=== PATIENT | male | born 1950 | race Caucasian/White ===

== ENCOUNTER → 2016-05-24 | Outpatient (CLI) | payer MEDICARE, BC | END | disposition home or self-care (01) | LOC: PCVCIMAG 14:36 | PROVIDERS: ATTEND Internal Medicine Cardiovascular Disease | DX: I25.10 Atherosclerotic heart disease of native coronary artery without angina pectoris (principal); I10 Essential (primary) hypertension; E78.00 Pure hypercholesterolemia, unspecified; Z95.5 Presence of coronary angioplasty implant and graft | CPT/HCPCS: 93325; 93351 ==

== ENCOUNTER → 2018-05-08 | Outpatient (CLI) | payer MEDICARE, BC ==
--- NOTE | 2018-05-08 16:44 | PCVCIMAG ---
APPROVED REPORT Study performed: 05/08/2018 14:14:24 Exam: Stress Echocardiogram Indication: CAD , Hypertension Patient Location: Echo lab Stress Nurse: Madeline Trujillo RN Status: routine Ht: 6 ft 0 in HR: 103 bpm BP: 160/98 mmHg Rhythm: NSR Medical History Medical History: CAD s/p stents, HTN Procedure The patient underwent an Exercise Stress Test using the Eber Protocol. Blood pressure, heart rate, and EKG were monitored. An Echocardiogram was performed by industrial maintenance technician in four stages in quad fashion. At peak stress, four selected images were obtained and placed side by side with resting images for comparison. Stress Test Details Stress Test: Exercise stress testing was performed using a Eber protocol. HR Resting HR: 103 bpmMax Heart Rate (APMHR): 153 bpm Max HR Achieved: 162 bpmTarget HR (85% APMHR): 130 bpm % of APMHR: 105 Recovery HR: 114 bpm HR response to stress: Normal HR response to stress BP Resting BP: 160/98 mmHg Max BP: 228/100 mmHg Recovery BP: 164/84 mmHg BP response to stress: Normal blood pressure response to stress. ECG Resting ECG: Sinus Rhythm Stress ECG: Sinus Rhythm Arrhythmia: VPC's Recovery ECG: Sinus Rhythm Recovery Arrhythmia: VPC"s Clinical Reason for Termination: Maximal effort Exercise duration: 7 min 45 sec Highest Stage Achieved: Stage 3: 3.4 mph at 14% grade. Exercise capacity: 10.10 METs Overall Exercise Capacity for Age: Average Pre-Stress Echo The resting Echocardiogram showed normal left ventricular contractility with an estimated Ejection Fraction of about 55-60%. Normal wall motion in all segments on baseline images. Normal wall motion in all segments on baseline images. Post-Stress Echo The stress Echocardiogram showed normal left ventricular contractility with an estimated Ejection Fraction of about 60-65%. Normal augmentation of wall motion in all segments on post stress images. Clinical No clinical or ECG evidence for ischemia. Conclusion Clinical Response: Non-ischemic Exercise Capacity: Average Stress ECG Response: Non-ischemic Stress Echo Images: Non-ischemic The left ventricle is normal in size and wall thickness in both the rest and stress images. Other Information Study Quality: Adequate <Conclusion> The left ventricle is normal in size and wall thickness in both the rest and stress images.
== END | disposition home or self-care (01) ==
LOC: PCVCIMAG 13:12
PROVIDERS: ATTEND Internal Medicine Cardiovascular Disease
DX: I65.23 Occlusion and stenosis of bilateral carotid arteries (principal); I25.10 Atherosclerotic heart disease of native coronary artery without angina pectoris; I10 Essential (primary) hypertension; E78.00 Pure hypercholesterolemia, unspecified; I77.9 Disorder of arteries and arterioles, unspecified; E78.5 Hyperlipidemia, unspecified; Z95.5 Presence of coronary angioplasty implant and graft
CPT/HCPCS: 93325; 93351; 93880